=== PATIENT | male | born 1950 | race Caucasian/White ===

== ENCOUNTER → 2020-09-13 | Outpatient (CLI) | payer OTHER ==
[~2020-09-13] MED LIST: BISOPROL PO; BISOPROLOL FUMAR5 MG PO; CHRONULAC20 GM/30 M PO; DOXYCYCLINE HY100 MG PO; FLINTSTONES WIT18 MG PO; FLONASE 0.05% N16 GM; FLUTICASONE PRO16 GM; HYDROCHLOROTHIA25 MG PO; IRON PO; LACTULOSE PO; LEVOTHYROXINE100 MCG PO; LEVOTHYROXINE75 MCG PO; LIPITOR TAB 2020 MG PO; MULTIVITAMIN PO; NEURONTIN 400400 MG PO; NORCO 5-325 TA1 EACH PO; NORVASC 5 MG TAB5 MG PO; PANTOPRAZOLE SO40 MG PO; PEPCID COMPLET1 EACH PO; PROTONIX40 MG PO; QUETIAPINE FUMA25 MG PO; QUETIAPINE FUMA50 MG PO; SEROQUEL25 MG PO; SEROQUEL50 MG PO; TELMISARTAN80 MG PO; VALIUM 5 MG TAB5 MG PO; VIT D2 PO; VITAMIN B12 INJ; VITAMIN D21250 MCG PO; XIFAXAN 550 MG550 MG PO; XIFAXAN550 MG PO; ZEBETA 5 MG TAB5 MG PO; ZOLOFT25 MG PO; ZYLOPRIM 100 M100 MG PO
[2020-09-13 09:27] LABS: HEMOGLOBIN 13.3 gm/dl (14.0-17.5); RED BLOOD COUNT 3.89 M/UL (4.20-5.50); WHITE BLOOD COUNT 3.5 K/UL (4.5-11.0)
[2020-09-13 09:47] LABS: BUN/CREATININE RATIO 16 (0-10)
== END ==
LOC: CT 09:05
PROVIDERS: Internal Medicine Hematology & Oncology
DX: C15.9 Malignant neoplasm of esophagus, unspecified (principal); C77.1 Secondary and unspecified malignant neoplasm of intrathoracic lymph nodes; K70.30 Alcoholic cirrhosis of liver without ascites; R13.14 Dysphagia, pharyngoesophageal phase; K80.20 Calculus of gallbladder without cholecystitis without obstruction; Z90.49 Acquired absence of other specified parts of digestive tract
CPT/HCPCS: 36415; 71260; 80053; 83615; 85025; Q9967

== ENCOUNTER → 2020-12-30 | Outpatient (CLI) | payer OTHER | LOC: CT 12-17 09:45 | DX: C15.9 Malignant neoplasm of esophagus, unspecified (principal); R13.14 Dysphagia, pharyngoesophageal phase; K70.30 Alcoholic cirrhosis of liver without ascites; C77.1 Secondary and unspecified malignant neoplasm of intrathoracic lymph nodes; Z51.89 Encounter for other specified aftercare; Z98.890 Other specified postprocedural states | CPT/HCPCS: 36415; 71260; 82565; Q9967 ==

== ENCOUNTER → 2021-04-08 | Outpatient (CLI) | payer OTHER | LOC: KOH-I 08:00 | DX: R31.9 Hematuria, unspecified (principal); C15.9 Malignant neoplasm of esophagus, unspecified; R10.9 Unspecified abdominal pain; J98.11 Atelectasis; J92.9 Pleural plaque without asbestos; K80.20 Calculus of gallbladder without cholecystitis without obstruction; K44.9 Diaphragmatic hernia without obstruction or gangrene; N20.0 Calculus of kidney; N28.9 Disorder of kidney and ureter, unspecified; K43.9 Ventral hernia without obstruction or gangrene; K40.20 Bilateral inguinal hernia, without obstruction or gangrene, not specified as recurrent | CPT/HCPCS: 74176 ==

== ENCOUNTER → 2021-07-07 | Outpatient (CLI) | payer OTHER | LOC: CT 09:22 | DX: C15.9 Malignant neoplasm of esophagus, unspecified (principal); C77.1 Secondary and unspecified malignant neoplasm of intrathoracic lymph nodes; R13.14 Dysphagia, pharyngoesophageal phase; K70.30 Alcoholic cirrhosis of liver without ascites; R59.9 Enlarged lymph nodes, unspecified | CPT/HCPCS: 36415; 71260; 82565; Q9967 ==

== ENCOUNTER → 2022-01-16 | Outpatient (CLI) | payer OTHER ==
[2022-01-16 08:15] LABS: RED BLOOD COUNT 3.71 M/UL (4.20-5.50); WHITE BLOOD COUNT 3.7 K/UL (4.5-11.0)
[2022-01-16 08:36] LABS: BUN/CREATININE RATIO 22 (0-10)
== END ==
LOC: CT 07:49
PROVIDERS: Internal Medicine Hematology & Oncology
DX: C15.9 Malignant neoplasm of esophagus, unspecified (principal); R13.14 Dysphagia, pharyngoesophageal phase; K70.30 Alcoholic cirrhosis of liver without ascites; C77.1 Secondary and unspecified malignant neoplasm of intrathoracic lymph nodes
CPT/HCPCS: 36415; 71260; 80053; 83615; 85025; Q9967